=== PATIENT | female | born 2000 | race Caucasian/White ===

== ENCOUNTER 2021-04-07 12:22 | Emergency (ER) | payer SELFPAY ==
--- NOTE | 2021-04-07 12:35 | EDM.PDOC ---
ED HPI GENERAL MEDICAL PROBLEM - General Chief Complaint: Genitourinary Problem Stated Complaint: POSSIBLE UTI Time Seen by Provider: 04/07/21 12:34 Source of Information: Reports: Patient History Limitations: Reports: No Limitations - History of Present Illness INITIAL COMMENTS - FREE TEXT/NARRATIVE: HISTORY AND PHYSICAL: History of present illness: The patient is a 20-year-old female who presents to the emergency room with complaints of bright red urine that started yesterday. The patient states that yesterday she noticed a pink hue to her urine and today noticed bright red hue to her urine. She denies dysuria and frequency. She states she otherwise feels perfectly healthy. Patient denies any fever, chills, headache, change in vision, syncope or near syncope. Denies any chest pain, back pain, shortness of breath or cough. Denies any abdominal pain, nausea, vomiting, diarrhea, or constipation. Has not noted any blood in urine or stool. Patient has been eating and drinking appropriately. Review of systems: As per history of present illness and below otherwise all systems reviewed and negative. Past medical history: As per history of present illness and as reviewed below otherwise noncontributory. Surgical history: As per history of present illness and as reviewed below otherwise noncontributory. Social history: See social history for further information Family history: As per history of present illness and as reviewed below otherwise noncontributory. Physical exam: General: Well developed and well nourished. Alert and orientated x 3. Nontoxic in appearance and in no acute distress. Vital signs are stable and have been reviewed by me. Nursing notes were reviewed. HEENT: Atraumatic, normocephalic, pupils equal and reactive bilaterally, negative for conjunctival pallor or scleral icterus, mucous membranes moist, TMs normal bilaterally, throat clear, neck supple, nontender, trachea midline. No drooling or trismus noted. No meningeal signs. No hot potato voice noted. Lungs: Clear to auscultation bilaterally. No wheezes, rales, or rhonchi. Chest nontender. Normal work of breathing, no accessory muscles used. Heart: S1S2, regular rate and rhythm without overt murmur, gallops, or rubs. No JVD. No peripheral edema Abdomen: Soft, nondistended, nontender. Normoactive bowel sounds. Negative for masses or costovertebral tenderness. Skin: Intact, warm, dry. No lesions or rashes noted. Hematologic: No petechiae or purpra. Mucosa appropriate color and normal nail bed color and refill. Extremities: Atraumatic, moves all extremities per self without difficulty or deficits, negative for cords or calf pain. Neurovascular unremarkable. Neuro: Awake, alert, oriented. Cranial nerves II through XII unremarkable. Cerebellum unremarkable. Motor and sensory unremarkable throughout. Exam nonfocal. Psychiatric: Mood and affect are appropriate. Normal thought process. Answering questions appropriately. Notes: *This patient was seen and evaluated during the 2019 SARS-CoV-2 novel coronavirus pandemic period. Community viral transmission is ongoing at time of this encounter and the emergency department is operating under pandemic response procedures. Stated above the patient is a 20-year-old female who presents with complaints of bright red urine for 24 hours and no dysuria and frequency. I have ordered a urinalysis. The patient is agreeable with this plan. The patient's urinalysis shows gross hematuria no bacteria. As the patient is having painless hematuria I have ordered a CT of the abdomen and pelvis with and without contrast for possible renal carcinoma or renal calculi. Ordered blood work on the patient. I have ordered fluids for the patient. The patient is agreeable with this plan. Abdomen pelvis CT Impression: Mild left hydronephrosis. No renal/ureteral calculi are identified. A recently passed stone cannot be completely excluded other etiologies cannot be excluded. If the patient`s pain continues c onsideration should be given to urology consult. I informed the patient of the CT results and of the need for her to see her primary care and a urologist for further work-up. The patient is agreeable with this discharge plan. I have talked with the patient about today's findings, in addition to providing specific details for plan of care. Reassessment at the time of disposition demonstrates that the patient is in no acute distress. The patient is stable for discharge, counseling was provided and we discussed in great detail signs and symptoms that would prompt them to return to the Emergency Department. Medication, follow up and supportive care measures were reviewed and discussed. Voices understanding and is agreeable to plan of care. Denies any further questions or concerns at this time. Diagnostics: urinalysis, BC, CMP, CT abdomen pelvis with and without contrast Therapeutics: IV fluids Impression: Hematuria Plan: 1. You were evaluated today on an emergent basis. Your plaints of painless blood in your urine was evaluated with a urinalysis, blood work, and a CT of your abdomen pelvis. No abnormalities were found. I would advise you to follow-up with a urologist for further work-up. 2. You can alternate Tylenol and ibuprofen as needed for pain and fever management. 3. We encourage you to follow up with your primary care provider and/or recommended specialist in the next few days for re-evaluation and further care/management. 4. If your symptoms should worsen, new symptoms develop or any of the signs and symptoms we discussed should arise please return to the emergency room or call 911 (if needed). Definitive disposition and diagnosis as appropriate pending reevaluation and review of above. - Related Data Allergies Allergy/AdvReac Type Severity Reaction Status Date / Time amoxicillin Allergy Cannot Verified 04/07/21 12:35 Remember Home Meds: Home Meds . [No Known Home Meds] 04/07/21 [History] ED ROS GENERAL - Review of Systems Review Of Systems: Comprehensive ROS is negative, except as noted in HPI. ED EXAM, RENAL/ - Physical Exam Exam: See Below (See dictation) Course - Vital Signs Last Recorded V/S: Last Vital Signs Temp 97.9 F 04/07/21 12:35 Pulse 56 L 04/07/21 15:30 Resp 17 04/07/21 15:30 BP 99/56 L 04/07/21 15:30 Pulse Ox 98 04/07/21 15:30 - Orders/Labs/Meds Labs: Laboratory Tests 04/07/21 04/07/21 04/07/21 Range/Units 12:33 13:25 13:25 WBC 9.81 (4.0-11.0) K/uL RBC 4.89 (4.30-5.90) M/uL Hgb 14.1 (12.0-16.0) g/dL Hct 40.7 (36.0-46.0) % MCV 83.2 (80.0-98.0) fL MCH 28.8 (27.0-32.0) pg MCHC 34.6 (31.0-37.0) g/dL RDW Std Deviation 42.3 (28.0-62.0) fl RDW Coeff of [place] 14 (11.0-15.0) % Plt Count 454 H (150-400) K/uL MPV 10.70 (7.40-12.00) fL Neut % (Auto) 50.7 (48.0-80.0) % Lymph % (Auto) 30.5 (16.0-40.0) % [place] % (Auto) 5.6 (0.0-15.0) % Eos % (Auto) 12.9 H (0.0-7.0) % Baso % (Auto) 0.3 (0.0-1.5) % Neut # (Auto) 5.0 (1.4-5.7) K/uL Lymph # (Auto) 3.0 H (0.6-2.4) K/uL [place] # (Auto) 0.6 (0.0-0.8) K/uL Eos # (Auto) 1.3 H (0.0-0.7) K/uL Baso # (Auto) 0.0 (0.0-0.1) K/uL Nucleated RBC % 0.0 /100WBC Nucleated RBCs # 0 K/uL Sodium 142 (136-145) mmol/L Potassium 4.4 (3.5-5.1) mmol/L Chloride 105 (98-107) mmol/L Carbon Dioxide 25.1 (21.0-32.0) mmol/L BUN 8 (7.0-18.0) mg/dL Creatinine 0.8 (0.6-1.0) mg/dL Est Cr Clr Drug Dosing 80.57 mL/min Estimated GFR (MDRD) > 60.0 ml/min Glucose 97 (74-106) mg/dL Calcium 9.7 (8.5-10.1) mg/dL Total Bilirubin 0.8 (0.2-1.0) mg/dL AST 20 (15-37) IU/L ALT 24 (14-63) IU/L Alkaline Phosphatase 91 (46-116) U/L Total Protein 8.0 (6.4-8.2) g/dL Albumin 4.4 (3.4-5.0) g/dL Globulin 3.6 (2.6-4.0) g/dL Albumin/Globulin Ratio 1.2 (0.9-1.6) Urine Color RED Urine Appearance BLOODY Urine pH 6.5 (5.0-8.0) Ur Specific [place] 1.015 (1.001-1.035) Urine Protein TRACE H (NEGATIVE) mg/dL Urine Glucose (UA) NEGATIVE (NEGATIVE) mg/dL Urine Ketones NEGATIVE (NEGATIVE) mg/dL Urine Occult Blood LARGE H (NEGATIVE) Urine Nitrite NEGATIVE (NEGATIVE) Urine Bilirubin NEGATIVE (NEGATIVE) Urine Urobilinogen 0.2 (<2.0) EU/dL Ur Leukocyte Esterase NEGATIVE (NEGATIVE) Urine RBC TOO NUMEROUS TO CT H (0-2/HPF) Urine WBC 0-1 (0-5/HPF) Ur Epithelial Cells OCCASIONAL (NONE-FEW) Urine Bacteria RARE (NEGATIVE) Urinalysis Comment Meds: Medications Discontinued Medications Generic Name Dose Route Start Last Admin Trade Name Freq PRN Reason Stop Dose Admin Sodium Chloride 1,000 mls @ 999 mls/hr 04/07/21 13:13 04/07/21 13:21 Normal Saline IV 04/07/21 14:13 999 mls/hr .BOLUS ONE Administration Iopamidol 100 ml 04/07/21 19:08 04/07/21 19:11 Iopamidol 755 Mg/Ml 500 Ml Multipack Bottle IVPUSH 04/07/21 19:09 100 ml ONETIME STA Administration Sodium Chloride 10 ml 04/07/21 13:13 04/07/21 13:19 Sodium Chloride 0.9% 10 Ml Syringe FLUSH 10 ml ASDIRECTED PRN Administration Keep Vein Open Sodium Chloride 2.5 ml 04/07/21 13:13 04/07/21 13:19 Sodium Chloride 0.9% 2.5 Ml Syringe FLUSH 2.5 ml ASDIRECTED PRN Administration Keep Vein Open Departure - Departure Time of Disposition: 15:18 Disposition: Home, Self-Care 01 Condition: Good Clinical Impression: Hematuria Qualifiers: Hematuria type: gross Qualified Code(s): R31.0 - Gross hematuria - Discharge Information *PRESCRIPTION DRUG MONITORING PROGRAM REVIEWED*: Not Applicable *COPY OF PRESCRIPTION DRUG MONITORING REPORT IN PATIENT TAE: Not Applicable Instructions: Hematuria, Adult Referrals: PCP,None [Primary Care Provider] - Forms: ED Department Discharge Additional Instructions: The following information is given to patients seen in the emergency department who are being discharged to home. This information is to outline your options for follow-up care. We provide all patients seen in our emergency department with a follow-up referral. The need for follow-up, as well as the timing and circumstances, are variable depending upon the specifics of your emergency department visit. If you don't have a primary care physician on staff, we will provide you with a referral. We always advise you to contact your personal physician following an emergency department visit to inform them of the circumstance of the visit and for follow-up with them and/or the need for any referrals to a consulting specialist. The emergency department will also refer you to a specialist when appropriate. This referral assures that you have the opportunity for follow-up care with a specialist. All of these measure are taken in an effort to provide you with optimal care, which includes your follow-up. Under all circumstances we always encourage you to contact your private physician who remains a resource for coordinating your care. When calling for follow-up care, please make the office aware that this follow-up is from your recent emergency room visit. If for any reason you are refused follow-up, please contact the [facility] Emergency Department at and asked to speak to the emergency department charge nurse. [facility] - [facility] [address] [place] [address] [place] [address] Plan: 1. You were evaluated today on an emergent basis. Your plaints of painless blood in your urine was evaluated with a urinalysis, blood work, and a CT of your abdomen pelvis. No abnormalities were found. I would advise you to follow-up with a urologist for further work-up. 2. You can alternate Tylenol and ibuprofen as needed for pain and fever management. 3. We encourage you to follow up with your primary care provider and/or recommended specialist in the next few days for re-evaluation and further care/management. 4. If your symptoms should worsen, new symptoms develop or any of the signs and symptoms we discussed should arise please return to the emergency room or call [phone] (if needed).
[2021-04-07] MEDS ORDERED: Sodium Chloride 0.9% 2.5 ML Syringe FLUSH PRN (13:13)
[2021-04-07] MEDS ORDERED: Sodium Chloride 0.9% 10 ML Syringe FLUSH PRN (13:13)
[2021-04-07] MEDS ORDERED: Sodium Chloride 0.9% 1,000 ML IV ONE (13:13)
[2021-04-07 13:53] LABS: BLOOD UREA NITROGEN,BUN 8 mg/dL (7.0-18.0); CARBON DIOXIDE,CO2 25.1 mmol/L (21.0-32.0); CHLORIDE,CL 105 mmol/L (98-107); GLUCOSE RANDOM 97 mg/dL (74-106); POTASSIUM,K 4.4 mmol/L (3.5-5.1); SODIUM,NA 142 mmol/L (136-145)
--- NOTE | 2021-04-07 15:08 | CT ---
Indication: Painless hematuria. Technique: Multiple contiguous axial images were obtained from the lung bases to the symphysis pubis before and after the intravenous administration of 100 milliliters Isovue 370. Please note that all CT scans at this facility use dose modulation, iterative reconstruction, and/or weight-based dosing when appropriate to reduce radiation dose to as low as reasonably achievable. Comparison: None Findings: The lung bases are clear. No infiltrate, pleural effusion, pneumothorax is identified. The liver, spleen, pancreas, gallbladder, and adrenals are normal. No intrahepatic biliary ductal dilatation is identified. In the pelvis, an IUD is present in the uterus. Both ovaries are grossly normal. The small and large bowel are normal in caliber. The appendix is normal in caliber. No inflammatory changes are identified in the right lower quadrant. The aorta is normal in size. No free air or free fluid is identified within the abdomen or pelvis. Both kidneys are symmetric in size. No renal calculi are identified. Minimal left hydronephrosis is identified. No hydroureter is identified. No renal/ureteral calculi identified. No calculi are identified within the bladder. Impression: Mild left hydronephrosis. No renal/ureteral calculi are identified. A recently passed stone cannot be completely excluded other etiologies cannot be excluded. If the patient`s pain continues consideration should be given to urology consult. Please note that all CT scans at this facility use dose modulation, iterative reconstruction, and/or weight-based dosing when appropriate to reduce radiation dose to as low as reasonably achievable. Dictated by Apple Perkins MD @ 04/07/2021 3:08:24 PM (Electronically Signed)
[2021-04-07] MEDS ORDERED: Iopamidol 755 MG/ML 500 ML Multipack Bottle IVPUSH STA (19:08)
== END 2021-04-07 15:31 | disposition home or self-care (01) ==
LOC: MW.ED 12:22
DX: R31.0 Gross hematuria (principal); Z88.0 Allergy status to penicillin
CPT/HCPCS: 36415; 74178; 80053; 81001; 85025; 99284; J7030; Q9967

== ENCOUNTER 2021-04-10 09:30 | Inpatient (IN) | payer SELFPAY ==
[2021-04-10] MEDS ORDERED: Sodium Chloride 0.9% 1,000 ML IV ONE ×3 (10:31→20:13)
[2021-04-10] MEDS ORDERED: Ketorolac 30 MG/ML SDV IVPUSH ONE (10:39)
--- NOTE | 2021-04-10 10:39 | EDM.PDOC ---
ED HPI GENERAL MEDICAL PROBLEM - General Chief Complaint: Genitourinary Problem Stated Complaint: BLOOD CLOTS IN URINE Time Seen by Provider: 04/10/21 10:04 Source of Information: Reports: Patient History Limitations: Reports: No Limitations - History of Present Illness INITIAL COMMENTS - FREE TEXT/NARRATIVE: HISTORY AND PHYSICAL: History of present illness: Patient is a 20-year-old female resents emergency room today with concern of gross hematuria x5 days. Patient states that what she was seen in the emergency room on Friday and states that she is not quite sure the outcome of that visit. Patient states she did have lab work and a scan at that time. Patient states that since then, she has continued to urinate blood clots. Patient denies any pain associated with this but states that she does have some discomfort when the blood clots to come out of her urethra. Patient states that she is not bleeding vaginally and she is able to differentiate this easily. Frank lopes does have pictures on her phone with her and a video of her urinating dark blood clots. Patient states she does have an IUD so does not believe to be . Patient states that she has had a cough x2 weeks and states that she did develop a fever this morning of 103. Patient states she did take 1 dose of Tylenol at about 5/6 AM for her fever. Denies any other symptoms or concerns. Patient denies chest pain, shortness of breath. Denies headache, neck stiff ness, change in vision, syncope, or near syncope. Denies nausea, vomiting, abdominal pain, diarrhea, constipation, or dysuria. Has not noted any blood in stool. Patient has been eating and drinking appropriately. Review of systems: As per history of present illness and below otherwise all systems reviewed and negative. Past medical history: As per history of present illness and as reviewed below otherwise noncontributory. Surgical history: As per history of present illness and as reviewed below otherwise noncontribu tory. Social history: See social history for further information Family history: As per history of present illness and as reviewed below otherwise noncontributory. Physical exam: General: Patient is alert, oriented, and in no acute distress. Patient sitting comfortably on exam table. Patient is febrile at 103 with mild tachycardia of 115. Otherwise, vitally stable and reviewed by me. HEENT: Atraumatic, normocephalic, pupils equal and reactive bilaterally, negative for conjunctival pallor or scleral icterus, mucous membranes moist, TMs normal bilaterally, throat clear, neck supple, nontender, trachea midline. No drooling or trismus noted. No meningeal signs. No hot potato voice noted. Lungs: Dry cough on exam. Otherwise, clear to auscultation, breath sounds equal bilaterally, chest nontender. Heart: S1S2, regular rate and rhythm without overt murmur Abdomen: Soft, nondistended, nontender. Negative for masses or hepatosplenomegaly. Negative for costovertebral tenderness. Pelvis: Stable nontender. Genitourinary: Cryptoanalysis Teacher at bedside Shwetha Duncan RN. External genitalia grossly unremarkable. There is a small amount of white vaginal discharge in the vaginal vault. Negative cervical motion tenderness. Uterus is nontender. No adnexal mass or tenderness. Rectal: Deferred. Skin: Intact, warm, dry. No lesions or rashes noted. Extremities: Atraumatic, negative for cords or calf pain. Neurovascular unremarkable. Neuro: Awake, alert, oriented. Cranial nerves II through XII unremarkable. Cerebellum unremarkable. Motor and sensory unremarkable throughout. Exam nonfocal. Notes: Dr. Kevin verbally involved in patient care. Patient is a 20-year-old female who resents emergency room today secondary to gross hematuria x4 to 5 days. Upon arrival to the ED, patient is febrile 103 with mild tachycardia 115's on exam and does have a dry cough on exam. Patient does note she has had a cough x2 weeks. Patient states she was seen in the emergency room on Friday. On chart review from patient's visit on 04/07/2021, patient was seen in the emergency room for gross hematuria at that time. Patient had received basic lab work which was unremarkable and urinalysis showing gross hematuria without bacteria or concern for infection. Patient also received an abdominal pelvic CT scan both with and without contrast that showed mild left hydronephrosis without renal or ureteral calculi identified. Recently passed stone could not be excluded or other causes cannot be excluded. Recommend urology consult. Patient was discharged with instructions to follow-up with urologist and primary care provider. Upon arrival to the ED today, patient is tachycardic 115-1 20s on exam, febrile at 103, otherwise vitally stable on exam and well-appearing. Patient does not have any CVA or abdominal tenderness. exam is unremarkable and shows no vaginal bleeding or cervical motion or uterine tenderness. Exam is otherwise unremarkable. Will repeat labwork today, assessing H&H status, possible change in renal function, and repeat UA. Given patient has had cough x2 weeks with now having a fever and mild tachycardia, will also obtain a chest x-ray, COVID-19/influenza swab, assessing for possible source of fever. See Dr. Kevin's dictation for specific EKG interpretation. However, sinus tachycardia with a rate of 110 without STEMI. CBC remarkable for a elevation in white blood cell count at 19.25 which has increased from lab work on 04/07/21 shows a normal white blood cell count. Hemoglobin hematocrit stable. Patient does have a neutrophilic elevation percent at 89.1, otherwise mild derangements of CBC unremarkable. CMP shows a mildly elevated glucose at 127, otherwise mild derangements of CMP unremarkable. Lactic acid noted to be elevated at 2.1. Urinalysis shows 1-4 white blood cells, 0-1 red blood cells, negative leukocyte esterase, negative nitrite, 2+ bacteria. hCG negative. COVID-19 negative. Troponin negative. Repeat lactate within normal limits at 1.9. Strep swab throat negative. Influenza negative. RSV negative. Chest x-ray unremarkable. Pending peripheral blood smear. Pending blood cultures x2. D-dimer elevated at 0.66 so will obtain angiography chest and bilateral lower extremity venous Doppler. Angiography of chest shows minimal nonspecific central bronchial thickening and trace reactive appearance of the hilar lymph nodes. Otherwise, no evidence of dense consolidation or pulmonary embolism. Lower extremity Doppler ultrasound is negative bilateral lower extremity venous Doppler. Upon reevaluation of patient, she remains tachycardic approximately 110s on exam. She does have improvement of her fever to 100.3. I did call and speak to the urologist on-call for [facility], Dr. Torrez, and thoroughly discussed patient's case. She would like patient to receive an ultrasound of the bilateral kidneys and bladder and to assess for jet streaming of the bladder on each side. These ultrasounds were ordered at this time. According to Dr. Fall, if patient has bilateral ureteral jets, she does not require transfer for urology and can be admitted to our facility. Retroperitoneal/bladder ultrasound shows no hydronephrosis. No perinephritic fluid or renal abscess. Bilateral ureteral jets observed. I did call and speak to the hospitalist on-call, Dr. Queen, and thoroughly discussed patient's case. Will admit to inpatient to Dr. Queen. Voices understanding and is agreeable to plan of care. Denies any further questions or concerns at this time. Patient was transferred to the hospital floor to Dr. Queen's care in stable condition. Diagnostics: EKG, CBC, CMP, UA, urine hCG, COVID-19/influenza, chest x-ray, peripheral blood smear, lactate, blood cultures x2, strep swab throat, RSV, D-dimer, angiography of chest, bilateral lower extremity venous ultrasound, retroperitoneal and bladder ultrasound Therapeutics: Normal saline bolus 20cc/kg then maintenance, Toradol, Tylenol, Cefepime, Vancomycin Impression: SEPSIS with unknown source Hematuria Plan: Admit to inpatient to Dr. Queen Definitive disposition and diagnosis as appropriate pending reevaluation and review of above. Treatments ELECTRONICS INSTRUCTOR: Reports: Acetaminophen head Pain Score (Numeric/FACES): 5 - Related Data Allergies Allergy/AdvReac Type Severity Reaction Status Date / Time amoxicillin Allergy Cannot Verified 04/10/21 10:10 Remember Home Meds: Home Meds . [No Known Home Meds] 04/07/21 [History] Past Medical History - Past Health History Medical/Surgical History: Denies Medical/Surgical History HEENT History: Reports: None Cardiovascular History: Reports: None Respiratory History: Reports: None Gastrointestinal History: Reports: None Genitourinary History: Reports: None VISITOR USE ASSISTANT History: Reports: None Musculoskeletal History: Reports: None Neurological History: Reports: None Psychiatric History: Reports: None Endocrine/Metabolic History: Reports: None Hematologic History: Reports: None Other Hematologic History: carries sickle cell trait Immunologic History: Reports: None Oncologic (Cancer) History: Reports: None Dermatologic History: Reports: None - Infectious Disease History Infectious Disease History: Reports: None - Past Surgical History Head Surgeries/Procedures: Reports: None HEENT Surgical History: Reports: None Cardiovascular Surgical History: Reports: None Respiratory Surgical History: Reports: None GI Surgical History: Reports: None Female Surgical History: Reports: None Endocrine Surgical History: Reports: None Neurological Surgical History: Reports: None Musculoskeletal Surgical History: Reports: None Oncologic Surgical History: Reports: None Dermatological Surgical History: Reports: None Social & Family History - Family History Family Medical History: No Pertinent Family History - Tobacco Use Tobacco Use Status *Q: Never Tobacco User Second Hand Smoke Exposure: No - Caffeine Use Caffeine Use: Reports: None - Recreational Drug Use Recreational Drug Use: No ED ROS GENERAL - Review of Systems Review Of Systems: Comprehensive ROS is negative, except as noted in HPI. ED EXAM, GENERAL - Physical Exam Exam: See Below (see dictation) Course - Vital Signs Last Recorded V/S: Last Vital Signs Temp 100 F 04/10/21 17:04 Pulse 104 H 04/10/21 18:41 Resp 20 04/10/21 18:41 BP 102/52 L 04/10/21 18:41 Pulse Ox 98 04/10/21 18:41 - Orders/Labs/Meds Orders: Active Orders 24 hr Category Date Time Status CULTURE BLOOD [BC] Stat Lab 04/10/21 10:55 Received CULTURE BLOOD [BC] Stat Lab 04/10/21 11:26 Received Blood Culture x2 Reflex Set [OM.PC] Stat Oth 04/10/21 11:11 Ordered Isolation [COMM] Routine Oth 04/10/21 10:31 Active Isolation [COMM] Routine Oth 04/10/21 11:55 Active Labs: Laboratory Tests 04/10/21 04/10/21 04/10/21 Range/Units 10:10 10:10 10:18 WBC (4.0-11.0) K/uL RBC (4.30-5.90) M/uL Hgb (12.0-16.0) g/dL Hct (36.0-46.0) % MCV (80.0-98.0) fL MCH (27.0-32.0) pg MCHC (31.0-37.0) g/dL RDW Std Deviation (28.0-62.0) fl RDW Coeff of [place] (11.0-15.0) % Plt Count (150-400) K/uL MPV (7.40-12.00) fL Neut % (Auto) (48.0-80.0) % Lymph % (Auto) (16.0-40.0) % Lynn % (Auto) (0.0-15.0) % Eos % (Auto) (0.0-7.0) % Baso % (Auto) (0.0-1.5) % Neut # (Auto) (1.4-5.7) K/uL Lymph # (Auto) (0.6-2.4) K/uL Lynn # (Auto) (0.0-0.8) K/uL Eos # (Auto) (0.0-0.7) K/uL Baso # (Auto) (0.0-0.1) K/uL Nucleated RBC % /100WBC Nucleated RBCs # K/uL Smear Path Review D-Dimer, Quantitative (0.0-0.50) mg/L FEU Sodium (136-145) mmol/L Potassium (3.5-5.1) mmol/L Chloride (98-107) mmol/L Carbon Dioxide (21.0-32.0) mmol/L BUN (7.0-18.0) mg/dL Creatinine (0.6-1.0) mg/dL Est Cr Clr Drug Dosing mL/min Estimated GFR (MDRD) ml/min Glucose (74-106) mg/dL Lactic Acid (0.4-2.0) mmol/L Calcium (8.5-10.1) mg/dL Total Bilirubin (0.2-1.0) mg/dL AST (15-37) IU/L ALT (14-63) IU/L Alkaline Phosphatase (46-116) U/L Troponin I (0.000-0.056) ng/mL Total Protein (6.4-8.2) g/dL Albumin (3.4-5.0) g/dL Globulin (2.6-4.0) g/dL Albumin/Globulin Ratio (0.9-1.6) Lipase (73-393) U/L Urine Color YELLOW Urine Appearance CLEAR Urine pH 6.0 (5.0-8.0) Ur Specific [place] 1.020 (1.001-1.035) Urine Protein NEGATIVE (NEGATIVE) mg/dL Urine Glucose (UA) NEGATIVE (NEGATIVE) mg/dL Urine Ketones NEGATIVE (NEGATIVE) mg/dL Urine Occult Blood MODERATE H (NEGATIVE) Urine Nitrite NEGATIVE (NEGATIVE) Urine Bilirubin NEGATIVE (NEGATIVE) Urine Urobilinogen 0.2 (<2.0) EU/dL Ur Leukocyte Esterase NEGATIVE (NEGATIVE) Urine RBC 0-1 (0-2/HPF) Urine WBC 1-4 (0-5/HPF) Ur Epithelial Cells OCCASIONAL (NONE-FEW) Urine Bacteria 2+ H (NEGATIVE) Urine Mucus LIGHT (NONE-MOD) Urine HCG, Qual NEGATIVE (NEGATIVE) SARS-CoV-2 RNA ([place]) NEGATIVE (NEGATIVE) Group A Strep (PCR) (NOT DETECT) 04/10/21 04/10/21 04/10/21 Range/Units 10:55 10:55 10:55 WBC 19.25 H (4.0-11.0) K/uL RBC 4.29 L (4.30-5.90) M/uL Hgb 12.3 (12.0-16.0) g/dL Hct 35.8 L (36.0-46.0) % MCV 83.4 (80.0-98.0) fL MCH 28.7 (27.0-32.0) pg MCHC 34.4 (31.0-37.0) g/dL RDW Std Deviation 43.4 (28.0-62.0) fl RDW Coeff of [place] 14 (11.0-15.0) % Plt Count 274 (150-400) K/uL MPV 10.60 (7.40-12.00) fL Neut % (Auto) 89.1 H (48.0-80.0) % Lymph % (Auto) 4.3 L (16.0-40.0) % Lynn % (Auto) 6.5 (0.0-15.0) % Eos % (Auto) 0.0 (0.0-7.0) % Baso % (Auto) 0.1 (0.0-1.5) % Neut # (Auto) 17.2 H (1.4-5.7) K/uL Lymph # (Auto) 0.8 (0.6-2.4) K/uL Lynn # (Auto) 1.3 H (0.0-0.8) K/uL Eos # (Auto) 0.0 (0.0-0.7) K/uL Baso # (Auto) 0.0 (0.0-0.1) K/uL Nucleated RBC % 0.0 /100WBC Nucleated RBCs # 0 K/uL Smear Path Review D-Dimer, Quantitative (0.0-0.50) mg/L FEU Sodium 137 (136-145) mmol/L Potassium 3.7 (3.5-5.1) mmol/L Chloride 100 (98-107) mmol/L Carbon Dioxide 21.9 (21.0-32.0) mmol/L BUN 9 (7.0-18.0) mg/dL Creatinine 1.0 (0.6-1.0) mg/dL Est Cr Clr Drug Dosing 64.46 mL/min Estimated GFR (MDRD) > 60.0 ml/min Glucose 127 H (74-106) mg/dL Lactic Acid 2.1 H* (0.4-2.0) mmol/L Calcium 9.8 (8.5-10.1) mg/dL Total Bilirubin 0.8 (0.2-1.0) mg/dL AST 13 L (15-37) IU/L ALT 21 (14-63) IU/L Alkaline Phosphatase 79 (46-116) U/L Troponin I (0.000-0.056) ng/mL Total Protein 7.4 (6.4-8.2) g/dL Albumin 4.0 (3.4-5.0) g/dL Globulin 3.4 (2.6-4.0) g/dL Albumin/Globulin Ratio 1.2 (0.9-1.6) Lipase 63 L (73-393) U/L Urine Color Urine Appearance Urine pH (5.0-8.0) Ur Specific [place] (1.001-1.035) Urine Protein (NEGATIVE) mg/dL Urine Glucose (UA) (NEGATIVE) mg/dL Urine Ketones (NEGATIVE) mg/dL Urine Occult Blood (NEGATIVE) Urine Nitrite (NEGATIVE) Urine Bilirubin (NEGATIVE) Urine Urobilinogen (<2.0) EU/dL Ur Leukocyte Esterase (NEGATIVE) Urine RBC (0-2/HPF) Urine WBC (0-5/HPF) Ur Epithelial Cells (NONE-FEW) Urine Bacteria (NEGATIVE) Urine Mucus (NONE-MOD) Urine HCG, Qual (NEGATIVE) SARS-CoV-2 RNA ([place]) (NEGATIVE) Group A Strep (PCR) (NOT DETECT) 04/10/21 04/10/21 04/10/21 Range/Units 10:55 10:55 12:14 WBC (4.0-11.0) K/uL RBC (4.30-5.90) M/uL Hgb (12.0-16.0) g/dL Hct (36.0-46.0) % MCV (80.0-98.0) fL MCH (27.0-32.0) pg MCHC (31.0-37.0) g/dL RDW Std Deviation (28.0-62.0) fl RDW Coeff of [place] (11.0-15.0) % Plt Count (150-400) K/uL MPV (7.40-12.00) fL Neut % (Auto) (48.0-80.0) % Lymph % (Auto) (16.0-40.0) % Lynn % (Auto) (0.0-15.0) % Eos % (Auto) (0.0-7.0) % Baso % (Auto) (0.0-1.5) % Neut # (Auto) (1.4-5.7) K/uL Lymph # (Auto) (0.6-2.4) K/uL Lynn # (Auto) (0.0-0.8) K/uL Eos # (Auto) (0.0-0.7) K/uL Baso # (Auto) (0.0-0.1) K/uL Nucleated RBC % /100WBC Nucleated RBCs # K/uL Smear Path Review SENT TO PATHOLOGY D-Dimer, Quantitative 0.66 H (0.0-0.50) mg/L FEU Sodium (136-145) mmol/L Potassium (3.5-5.1) mmol/L Chloride (98-107) mmol/L Carbon Dioxide (21.0-32.0) mmol/L BUN (7.0-18.0) mg/dL Creatinine (0.6-1.0) mg/dL Est Cr Clr Drug Dosing mL/min Estimated GFR (MDRD) ml/min Glucose (74-106) mg/dL Lactic Acid (0.4-2.0) mmol/L Calcium (8.5-10.1) mg/dL Total Bilirubin (0.2-1.0) mg/dL AST (15-37) IU/L ALT (14-63) IU/L Alkaline Phosphatase (46-116) U/L Troponin I (0.000-0.056) ng/mL Total Protein (6.4-8.2) g/dL Albumin (3.4-5.0) g/dL Globulin (2.6-4.0) g/dL Albumin/Globulin Ratio (0.9-1.6) Lipase (73-393) U/L Urine Color Urine Appearance Urine pH (5.0-8.0) Ur Specific [place] (1.001-1.035) Urine Protein (NEGATIVE) mg/dL Urine Glucose (UA) (NEGATIVE) mg/dL Urine Ketones (NEGATIVE) mg/dL Urine Occult Blood (NEGATIVE) Urine Nitrite (NEGATIVE) Urine Bilirubin (NEGATIVE) Urine Urobilinogen (<2.0) EU/dL Ur Leukocyte Esterase (NEGATIVE) Urine RBC (0-2/HPF) Urine WBC (0-5/HPF) Ur Epithelial Cells (NONE-FEW) Urine Bacteria (NEGATIVE) Urine Mucus (NONE-MOD) Urine HCG, Qual (NEGATIVE) SARS-CoV-2 RNA ([place]) (NEGATIVE) Group A Strep (PCR) NOT DETECTED (NOT DETECT) 04/10/21 04/10/21 Range/Units 16:07 16:07 WBC (4.0-11.0) K/uL RBC (4.30-5.90) M/uL Hgb (12.0-16.0) g/dL Hct (36.0-46.0) % MCV (80.0-98.0) fL MCH (27.0-32.0) pg MCHC (31.0-37.0) g/dL RDW Std Deviation (28.0-62.0) fl RDW Coeff of [place] (11.0-15.0) % Plt Count (150-400) K/uL MPV (7.40-12.00) fL Neut % (Auto) (48.0-80.0) % Lymph % (Auto) (16.0-40.0) % Lynn % (Auto) (0.0-15.0) % Eos % (Auto) (0.0-7.0) % Baso % (Auto) (0.0-1.5) % Neut # (Auto) (1.4-5.7) K/uL Lymph # (Auto) (0.6-2.4) K/uL Lynn # (Auto) (0.0-0.8) K/uL Eos # (Auto) (0.0-0.7) K/uL Baso # (Auto) (0.0-0.1) K/uL Nucleated RBC % /100WBC Nucleated RBCs # K/uL Smear Path Review D-Dimer, Quantitative (0.0-0.50) mg/L FEU Sodium (136-145) mmol/L Potassium (3.5-5.1) mmol/L Chloride (98-107) mmol/L Carbon Dioxide (21.0-32.0) mmol/L BUN (7.0-18.0) mg/dL Creatinine (0.6-1.0) mg/dL Est Cr Clr Drug Dosing mL/min Estimated GFR (MDRD) ml/min Glucose (74-106) mg/dL Lactic Acid 1.9 (0.4-2.0) mmol/L Calcium (8.5-10.1) mg/dL Total Bilirubin (0.2-1.0) mg/dL AST (15-37) IU/L ALT (14-63) IU/L Alkaline Phosphatase (46-116) U/L Troponin I < 0.050 (0.000-0.056) ng/mL Total Protein (6.4-8.2) g/dL Albumin (3.4-5.0) g/dL Globulin (2.6-4.0) g/dL Albumin/Globulin Ratio (0.9-1.6) Lipase (73-393) U/L Urine Color Urine Appearance Urine pH (5.0-8.0) Ur Specific [place] (1.001-1.035) Urine Protein (NEGATIVE) mg/dL Urine Glucose (UA) (NEGATIVE) mg/dL Urine Ketones (NEGATIVE) mg/dL Urine Occult Blood (NEGATIVE) Urine Nitrite (NEGATIVE) Urine Bilirubin (NEGATIVE) Urine Urobilinogen (<2.0) EU/dL Ur Leukocyte Esterase (NEGATIVE) Urine RBC (0-2/HPF) Urine WBC (0-5/HPF) Ur Epithelial Cells (NONE-FEW) Urine Bacteria (NEGATIVE) Urine Mucus (NONE-MOD) Urine HCG, Qual (NEGATIVE) SARS-CoV-2 RNA ([place]) (NEGATIVE) Group A Strep (PCR) (NOT DETECT) Meds: Medications Discontinued Medications Generic Name Dose Route Start Last Admin Trade Name Freq PRN Reason Stop Dose Admin Acetaminophen 1,000 mg 04/10/21 15:43 04/10/21 16:14 Acetaminophen 500 Mg Tab PO 04/10/21 15:44 1,000 mg ONETIME ONE Administration Sodium Chloride 1,000 mls @ 999 mls/hr 04/10/21 10:31 04/10/21 10:43 Normal Saline IV 04/10/21 11:31 999 mls/hr BOLUS ONE Administration Cefepime HCl 2 gm/ Premix 50 mls @ 100 mls/hr 04/10/21 11:54 04/10/21 15:08 IV 04/10/21 12:23 100 mls/hr ONETIME ONE Administration Vancomycin HCl 1 gm/ Sodium 250 mls @ 166 mls/hr 04/10/21 11:56 04/10/21 12:21 Chloride IV 04/10/21 13:26 166 mls/hr ONETIME ONE Administration Sodium Chloride 1,000 mls @ 400 mls/hr 04/10/21 11:56 04/10/21 12:22 Normal Saline IV 04/10/21 14:25 400 mls/hr STAT ONE Administration Iopamidol 50 ml 04/10/21 15:05 04/10/21 15:06 Iopamidol 755 Mg/Ml 500 Ml Multipack Bottle IVPUSH 04/10/21 15:06 50 ml ONETIME STA Administration Ketorolac Tromethamine 30 mg 04/10/21 10:39 04/10/21 10:43 Ketorolac 30 Mg/Ml Sdv IVPUSH 04/10/21 10:40 30 mg ONETIME ONE Administration Lorazepam 0.5 mg 04/10/21 16:07 04/10/21 16:15 Lorazepam 2 Mg/Ml Sdv IVPUSH 04/10/21 16:08 0.5 mg ONETIME ONE Administration Departure - Departure Time of Disposition: 19:16 Disposition: Admitted As Inpatient 66 Clinical Impression: Unspecified septicemia Hematuria Qualifiers: Hematuria type: gross Qualified Code(s): R31.0 - Gross hematuria - Discharge Information Sepsis Event Note (ED) - Evaluation Sepsis Screening Result: Possible Sepsis Risk - Focused Exam Vital Signs: Vital Signs Temp Temp Pulse Resp BP Pulse Ox 04/10/21 18:41 104 H 20 102/52 L 98 04/10/21 17:04 100 F 120 H 18 102/45 L 97 04/10/21 16:44 100 F 04/10/21 15:50 112 H 18 123/73 97 04/10/21 15:12 100 F 102 H 18 112/73 97 04/10/21 13:41 100.3 F 104 H 18 120/73 98 04/10/21 12:48 104 H 18 110/72 97 04/10/21 12:10 100 18 116/73 97 04/10/21 11:40 106 H 18 121/73 97 04/10/21 11:12 110 H 18 118/71 97 04/10/21 10:07 103.0 F H 116 H 18 113/66 98 - My Orders Last 24 Hours: My Active Orders 04/10/21 10:31 Isolation [COMM] Routine 04/10/21 10:55 CULTURE BLOOD [BC] Stat 04/10/21 11:11 Blood Culture x2 Reflex Set [OM.PC] Stat 04/10/21 11:26 CULTURE BLOOD [BC] Stat 04/10/21 11:55 Isolation [COMM] Routine - Assessment/Plan Last 24 Hours: My Active Orders 04/10/21 10:31 Isolation [COMM] Routine 04/10/21 10:55 CULTURE BLOOD [BC] Stat 04/10/21 11:11 Blood Culture x2 Reflex Set [OM.PC] Stat 04/10/21 11:26 CULTURE BLOOD [BC] Stat 04/10/21 11:55 Isolation [COMM] Routine
--- NOTE | 2021-04-10 11:26 | PCM.EKG ---
#1 Interpretation EKG Date: 04/10/21 Time: 11:07 Rhythm: NSR Rate (Beats/Min): 110 [place]: Normal P-Wave: Present QRS: Normal ST-T: Normal (T wave inversion III) QT: Normal Comparison: NA - No Prior EKG EKG Interpretation Comments: Sinus Tachycardia
[2021-04-10 11:29] LABS: BLOOD UREA NITROGEN,BUN 9 mg/dL (7.0-18.0); CARBON DIOXIDE,CO2 21.9 mmol/L (21.0-32.0); CHLORIDE,CL 100 mmol/L (98-107); GLUCOSE RANDOM 127 mg/dL (74-106); LIPASE 63 U/L (73-393); POTASSIUM,K 3.7 mmol/L (3.5-5.1); SODIUM,NA 137 mmol/L (136-145)
--- NOTE | 2021-04-10 11:42 | CR ---
INDICATION: Cough; fever. COMPARISON: CT abdomen and pelvis April 07, 2021. TECHNIQUE: Portable AP chest. FINDINGS: Normal size cardiac silhouette. Clear lung crowell with no evidence of acute pneumonic infiltrates or CHF. No pneumothorax or pleural effusion. IMPRESSION: Negative chest. Dictated by Manfred Weir MD @ 04/10/2021 11:41:10 AM (Electronically Signed)
[2021-04-10] MEDS ORDERED: Cefepime 2 GM in Premix Bag 1 BAG IV ONE (11:54)
[2021-04-10] MEDS ORDERED: Iopamidol 755 MG/ML 500 ML Multipack Bottle IVPUSH STA (15:05)
--- NOTE | 2021-04-10 15:30 | CT ---
Indication: Fever, tachycardia, sepsis of unknown origin Technique: Volumetric multidetector CT images of the chest were obtained after the administration of IV contrast. 50 cc Isovue 370 low osmolar intravenous contrast Comparison: None available. Findings: The thoracic inlet and thyroid gland are unremarkable. The thoracic aorta is nonaneurysmal. There is no central filling defect to suggest pulmonary embolism. There are likely mildly reactive mediastinal and hilar lymph nodes. There is no axillary adenopathy. There is minimal nonspecific central bronchial prominence. There is no focal consolidation, effusion or pneumothorax. There is no evidence of pulmonary mass or suspicious pulmonary nodule. The partially visualized upper abdominal viscera are within normal limits. The thoracic vertebral body heights are grossly maintained with minimal endplate Schmorl`s defects. There is no significant spondylolisthesis or displaced fracture. Impression: Minimal nonspecific central bronchial thickening and trace reactive appearance of the hilar lymph nodes. Otherwise, no evidence of dense consolidation or pulmonary embolus. Please note that all CT scans at this facility use dose modulation, iterative reconstruction, and/or weight-based dosing when appropriate to reduce radiation dose to as low as reasonably achievable. Dictated by Alfonzo Rey MD @ 04/10/2021 3:29:13 PM (Electronically Signed)
--- NOTE | 2021-04-10 15:33 | US ---
INDICATION: Fever. Tachycardia. Positive D-dimer. TECHNIQUE: Grayscale two-dimensional ultrasound without and with compression as well as color-flow and spectral Doppler of the lower extremity veins bilaterally. COMPARISON: None. FINDINGS: Normal compressibility of and flow within the common femoral, superficial femoral, popliteal, posterior tibial, profunda, and greater saphenous veins is demonstrated bilaterally. No thrombus is identified. IMPRESSION: Negative bilateral lower extremity venous Doppler study. Dictated by Hema Cevallos MD @ 04/10/2021 3:31:55 PM (Electronically Signed)
[2021-04-10] MEDS ORDERED: Acetaminophen 500 MG Tab PO ONE (15:43)
[2021-04-10] MEDS ORDERED: LORazepam 2 MG/ML SDV IVPUSH ONE (16:07)
--- NOTE | 2021-04-10 18:48 | US ---
HISTORY: Fever and tachycardia. UTI. TECHNIQUE: Renal/bladder ultrasound. COMPARISON: CT 04/07/2021. FINDINGS: Right and left kidneys measure 9.7 and 10.4 cm in size respectively. Renal cortical thickness is within normal limits. No hydronephrosis. No shadowing calculus. No renal mass or renal abscess seen. No perinephric fluid collection. Prevoid urinary bladder volume 359 mL. Postvoid urinary bladder volume 5 mL. Bilateral ureteral jets were observed. IMPRESSION: 1. No hydronephrosis. 2. No perinephric fluid or renal abscess. Dictated by Emeka Moody MD @ 04/10/2021 6:45:31 PM Dictated by: Emeka Moody MD @ 04/10/2021 18:45:34 (Electronically Signed)
[2021-04-10] MEDS ORDERED: Ibuprofen 800 MG Tab PO ONE (20:13)
--- NOTE | 2021-04-10 23:40 | PCM.HP.2 ---
H&P History of Present Illness - General Date of Service: 04/10/21 Admit Problem/Dx: Admission Diagnosis/Problem Admission Diagnosis/Problem Sepsis - History of Present Illness Initial Comments - Free Text/Narative: 20 yo female who reports five days of hematuria. She has been passing blood clots. She was seen four days ago in the ER. She had a CT scan of the addomen/pelvis which reported mild left hydronephrosis. Patient reports hematuria resolved but now has fevers and fatigue. She denies any abdominal /flank pain. No dysuria, no rash, no nausea, no shortness of breath. IN the ED today she was noted to have a fever, HR of 120s. Work up was significant for a WBC of 19,000, CXR, CT chest angio, and retroperitoneal ultrasound were unremarkable. head Pain Score (Numeric/FACES): 6 - Related Data Allergies/Adverse Reactions: Allergies Allergy/AdvReac Type Severity Reaction Status Date / Time amoxicillin Allergy Rash Verified 04/10/21 21:27 Home Medications: Home Meds levoFLOXacin [Levaquin] 750 mg PO DAILY #6 tab 04/11/21 [Rx] Past Medical History - Past Health History Medical/Surgical History: Denies Medical/Surgical History HEENT History: Reports: Impaired Vision Cardiovascular History: Reports: None Respiratory History: Reports: None Gastrointestinal History: Reports: None Genitourinary History: Reports: None DRIVER/GUIDE History: Reports: None Musculoskeletal History: Reports: None Neurological History: Reports: Migraines Psychiatric History: Reports: Anxiety Endocrine/Metabolic History: Reports: None Hematologic History: Reports: Other (See Below) Other Hematologic History: Sickle cell trait Immunologic History: Reports: None Oncologic (Cancer) History: Reports: None Dermatologic History: Reports: None - Infectious Disease History Infectious Disease History: Reports: None - Past Surgical History Head Surgeries/Procedures: Reports: None HEENT Surgical History: Reports: None Cardiovascular Surgical History: Reports: None Respiratory Surgical History: Reports: None GI Surgical History: Reports: None Female Surgical History: Reports: None Endocrine Surgical History: Reports: None Neurological Surgical History: Reports: None Musculoskeletal Surgical History: Reports: None Oncologic Surgical History: Reports: None Dermatological Surgical History: Reports: None Social & Family History - Family History Family Medical History: No Pertinent Family History - Tobacco Use Tobacco Use Status *Q: Never Tobacco User Second Hand Smoke Exposure: No - Caffeine Use Caffeine Use: Reports: None - Recreational Drug Use Recreational Drug Use: No H&P Review of Systems - Review of Systems: Review Of Systems: Comprehensive ROS is negative, except as noted in HPI. Exam - Exam Exam: See Below - Vital Signs Vital Signs: Last Vital Signs Temp 38.1 C 04/10/21 21:33 Pulse 114 H 04/10/21 20:49 Resp 18 04/10/21 20:49 BP 92/54 L 04/10/21 20:49 Pulse Ox 99 04/10/21 20:49 Weight: 68 kg - Exam General: Alert, Oriented HEENT: Mucosa Moist & [place], Posterior Pharynx Clear Neck: Supple. No: Lymphadenopathy Lungs: Clear to Auscultation, Normal Respiratory Effort Cardiovascular: Regular Rate, Regular Rhythm GI/Abdominal Exam: Normal Bowel Sounds, Soft, Non-Tender Extremities: Non-Tender Skin: Warm, Dry, Intact Neurological: Cranial Nerves Intact - Patient Data Lab Results Last 24 hrs: Laboratory Results - last 24 hr 04/10/21 04/10/21 04/10/21 Range/Units 10:10 10:10 10:18 WBC (4.0-11.0) K/uL RBC (4.30-5.90) M/uL Hgb (12.0-16.0) g/dL Hct (36.0-46.0) % MCV (80.0-98.0) fL MCH (27.0-32.0) pg MCHC (31.0-37.0) g/dL RDW Std Deviation (28.0-62.0) fl RDW Coeff of [place] (11.0-15.0) % Plt Count (150-400) K/uL MPV (7.40-12.00) fL Neut % (Auto) (48.0-80.0) % Lymph % (Auto) (16.0-40.0) % [place] % (Auto) (0.0-15.0) % Eos % (Auto) (0.0-7.0) % Baso % (Auto) (0.0-1.5) % Neut # (Auto) (1.4-5.7) K/uL Lymph # (Auto) (0.6-2.4) K/uL [place] # (Auto) (0.0-0.8) K/uL Eos # (Auto) (0.0-0.7) K/uL Baso # (Auto) (0.0-0.1) K/uL Nucleated RBC % /100WBC Nucleated RBCs # K/uL Smear Path Review D-Dimer, Quantitative (0.0-0.50) mg/L FEU Sodium (136-145) mmol/L Potassium (3.5-5.1) mmol/L Chloride (98-107) mmol/L Carbon Dioxide (21.0-32.0) mmol/L BUN (7.0-18.0) mg/dL Creatinine (0.6-1.0) mg/dL Est Cr Clr Drug Dosing mL/min Estimated GFR (MDRD) ml/min Glucose (74-106) mg/dL Lactic Acid (0.4-2.0) mmol/L Calcium (8.5-10.1) mg/dL Total Bilirubin (0.2-1.0) mg/dL AST (15-37) IU/L ALT (14-63) IU/L Alkaline Phosphatase (46-116) U/L Troponin I (0.000-0.056) ng/mL Total Protein (6.4-8.2) g/dL Albumin (3.4-5.0) g/dL Globulin (2.6-4.0) g/dL Albumin/Globulin Ratio (0.9-1.6) Lipase (73-393) U/L TSH, Ultra Sensitive (0.36-3.74) uIU/mL Urine Color YELLOW Urine Appearance CLEAR Urine pH 6.0 (5.0-8.0) Ur Specific [place] 1.020 (1.001-1.035) Urine Protein NEGATIVE (NEGATIVE) mg/dL Urine Glucose (UA) NEGATIVE (NEGATIVE) mg/dL Urine Ketones NEGATIVE (NEGATIVE) mg/dL Urine Occult Blood MODERATE H (NEGATIVE) Urine Nitrite NEGATIVE (NEGATIVE) Urine Bilirubin NEGATIVE (NEGATIVE) Urine Urobilinogen 0.2 (<2.0) EU/dL Ur Leukocyte Esterase NEGATIVE (NEGATIVE) Urine RBC 0-1 (0-2/HPF) Urine WBC 1-4 (0-5/HPF) Ur Epithelial Cells OCCASIONAL (NONE-FEW) Urine Bacteria 2+ H (NEGATIVE) Urine Mucus LIGHT (NONE-MOD) Urine HCG, Qual NEGATIVE (NEGATIVE) SARS-CoV-2 RNA ([place]) NEGATIVE (NEGATIVE) Group A Strep (PCR) (NOT DETECT) 04/10/21 04/10/21 04/10/21 Range/Units 10:55 10:55 10:55 WBC 19.25 H (4.0-11.0) K/uL RBC 4.29 L (4.30-5.90) M/uL Hgb 12.3 (12.0-16.0) g/dL Hct 35.8 L (36.0-46.0) % MCV 83.4 (80.0-98.0) fL MCH 28.7 (27.0-32.0) pg MCHC 34.4 (31.0-37.0) g/dL RDW Std Deviation 43.4 (28.0-62.0) fl RDW Coeff of [place] 14 (11.0-15.0) % Plt Count 274 (150-400) K/uL MPV 10.60 (7.40-12.00) fL Neut % (Auto) 89.1 H (48.0-80.0) % Lymph % (Auto) 4.3 L (16.0-40.0) % [place] % (Auto) 6.5 (0.0-15.0) % Eos % (Auto) 0.0 (0.0-7.0) % Baso % (Auto) 0.1 (0.0-1.5) % Neut # (Auto) 17.2 H (1.4-5.7) K/uL Lymph # (Auto) 0.8 (0.6-2.4) K/uL [place] # (Auto) 1.3 H (0.0-0.8) K/uL Eos # (Auto) 0.0 (0.0-0.7) K/uL Baso # (Auto) 0.0 (0.0-0.1) K/uL Nucleated RBC % 0.0 /100WBC Nucleated RBCs # 0 K/uL Smear Path Review D-Dimer, Quantitative (0.0-0.50) mg/L FEU Sodium 137 (136-145) mmol/L Potassium 3.7 (3.5-5.1) mmol/L Chloride 100 (98-107) mmol/L Carbon Dioxide 21.9 (21.0-32.0) mmol/L BUN 9 (7.0-18.0) mg/dL Creatinine 1.0 (0.6-1.0) mg/dL Est Cr Clr Drug Dosing 64.46 mL/min Estimated GFR (MDRD) > 60.0 ml/min Glucose 127 H (74-106) mg/dL Lactic Acid 2.1 H* (0.4-2.0) mmol/L Calcium 9.8 (8.5-10.1) mg/dL Total Bilirubin 0.8 (0.2-1.0) mg/dL AST 13 L (15-37) IU/L ALT 21 (14-63) IU/L Alkaline Phosphatase 79 (46-116) U/L Troponin I (0.000-0.056) ng/mL Total Protein 7.4 (6.4-8.2) g/dL Albumin 4.0 (3.4-5.0) g/dL Globulin 3.4 (2.6-4.0) g/dL Albumin/Globulin Ratio 1.2 (0.9-1.6) Lipase 63 L (73-393) U/L TSH, Ultra Sensitive (0.36-3.74) uIU/mL Urine Color Urine Appearance Urine pH (5.0-8.0) Ur Specific [place] (1.001-1.035) Urine Protein (NEGATIVE) mg/dL Urine Glucose (UA) (NEGATIVE) mg/dL Urine Ketones (NEGATIVE) mg/dL Urine Occult Blood (NEGATIVE) Urine Nitrite (NEGATIVE) Urine Bilirubin (NEGATIVE) Urine Urobilinogen (<2.0) EU/dL Ur Leukocyte Esterase (NEGATIVE) Urine RBC (0-2/HPF) Urine WBC (0-5/HPF) Ur Epithelial Cells (NONE-FEW) Urine Bacteria (NEGATIVE) Urine Mucus (NONE-MOD) Urine HCG, Qual (NEGATIVE) SARS-CoV-2 RNA ([place]) (NEGATIVE) Group A Strep (PCR) (NOT DETECT) 04/10/21 04/10/21 04/10/21 Range/Units 10:55 10:55 10:55 WBC (4.0-11.0) K/uL RBC (4.30-5.90) M/uL Hgb (12.0-16.0) g/dL Hct (36.0-46.0) % MCV (80.0-98.0) fL MCH (27.0-32.0) pg MCHC (31.0-37.0) g/dL RDW Std Deviation (28.0-62.0) fl RDW Coeff of [place] (11.0-15.0) % Plt Count (150-400) K/uL MPV (7.40-12.00) fL Neut % (Auto) (48.0-80.0) % Lymph % (Auto) (16.0-40.0) % [place] % (Auto) (0.0-15.0) % Eos % (Auto) (0.0-7.0) % Baso % (Auto) (0.0-1.5) % Neut # (Auto) (1.4-5.7) K/uL Lymph # (Auto) (0.6-2.4) K/uL [place] # (Auto) (0.0-0.8) K/uL Eos # (Auto) (0.0-0.7) K/uL Baso # (Auto) (0.0-0.1) K/uL Nucleated RBC % /100WBC Nucleated RBCs # K/uL Smear Path Review SENT TO PATHOLOGY D-Dimer, Quantitative 0.66 H (0.0-0.50) mg/L FEU Sodium (136-145) mmol/L Potassium (3.5-5.1) mmol/L Chloride (98-107) mmol/L Carbon Dioxide (21.0-32.0) mmol/L BUN (7.0-18.0) mg/dL Creatinine (0.6-1.0) mg/dL Est Cr Clr Drug Dosing mL/min Estimated GFR (MDRD) ml/min Glucose (74-106) mg/dL Lactic Acid (0.4-2.0) mmol/L Calcium (8.5-10.1) mg/dL Total Bilirubin (0.2-1.0) mg/dL AST (15-37) IU/L ALT (14-63) IU/L Alkaline Phosphatase (46-116) U/L Troponin I (0.000-0.056) ng/mL Total Protein (6.4-8.2) g/dL Albumin (3.4-5.0) g/dL Globulin (2.6-4.0) g/dL Albumin/Globulin Ratio (0.9-1.6) Lipase (73-393) U/L TSH, Ultra Sensitive 0.36 (0.36-3.74) uIU/mL Urine Color Urine Appearance Urine pH (5.0-8.0) Ur Specific [place] (1.001-1.035) Urine Protein (NEGATIVE) mg/dL Urine Glucose (UA) (NEGATIVE) mg/dL Urine Ketones (NEGATIVE) mg/dL Urine Occult Blood (NEGATIVE) Urine Nitrite (NEGATIVE) Urine Bilirubin (NEGATIVE) Urine Urobilinogen (<2.0) EU/dL Ur Leukocyte Esterase (NEGATIVE) Urine RBC (0-2/HPF) Urine WBC (0-5/HPF) Ur Epithelial Cells (NONE-FEW) Urine Bacteria (NEGATIVE) Urine Mucus (NONE-MOD) Urine HCG, Qual (NEGATIVE) SARS-CoV-2 RNA ([place]) (NEGATIVE) Group A Strep (PCR) (NOT DETECT) 04/10/21 04/10/21 04/10/21 Range/Units 12:14 16:07 16:07 WBC (4.0-11.0) K/uL RBC (4.30-5.90) M/uL Hgb (12.0-16.0) g/dL Hct (36.0-46.0) % MCV (80.0-98.0) fL MCH (27.0-32.0) pg MCHC (31.0-37.0) g/dL RDW Std Deviation (28.0-62.0) fl RDW Coeff of [place] (11.0-15.0) % Plt Count (150-400) K/uL MPV (7.40-12.00) fL Neut % (Auto) (48.0-80.0) % Lymph % (Auto) (16.0-40.0) % [place] % (Auto) (0.0-15.0) % Eos % (Auto) (0.0-7.0) % Baso % (Auto) (0.0-1.5) % Neut # (Auto) (1.4-5.7) K/uL Lymph # (Auto) (0.6-2.4) K/uL [place] # (Auto) (0.0-0.8) K/uL Eos # (Auto) (0.0-0.7) K/uL Baso # (Auto) (0.0-0.1) K/uL Nucleated RBC % /100WBC Nucleated RBCs # K/uL Smear Path Review D-Dimer, Quantitative (0.0-0.50) mg/L FEU Sodium (136-145) mmol/L Potassium (3.5-5.1) mmol/L Chloride (98-107) mmol/L Carbon Dioxide (21.0-32.0) mmol/L BUN (7.0-18.0) mg/dL Creatinine (0.6-1.0) mg/dL Est Cr Clr Drug Dosing mL/min Estimated GFR (MDRD) ml/min Glucose (74-106) mg/dL Lactic Acid 1.9 (0.4-2.0) mmol/L Calcium (8.5-10.1) mg/dL Total Bilirubin (0.2-1.0) mg/dL AST (15-37) IU/L ALT (14-63) IU/L Alkaline Phosphatase (46-116) U/L Troponin I < 0.050 (0.000-0.056) ng/mL Total Protein (6.4-8.2) g/dL Albumin (3.4-5.0) g/dL Globulin (2.6-4.0) g/dL Albumin/Globulin Ratio (0.9-1.6) Lipase (73-393) U/L TSH, Ultra Sensitive (0.36-3.74) uIU/mL Urine Color Urine Appearance Urine pH (5.0-8.0) Ur Specific [place] (1.001-1.035) Urine Protein (NEGATIVE) mg/dL Urine Glucose (UA) (NEGATIVE) mg/dL Urine Ketones (NEGATIVE) mg/dL Urine Occult Blood (NEGATIVE) Urine Nitrite (NEGATIVE) Urine Bilirubin (NEGATIVE) Urine Urobilinogen (<2.0) EU/dL Ur Leukocyte Esterase (NEGATIVE) Urine RBC (0-2/HPF) Urine WBC (0-5/HPF) Ur Epithelial Cells (NONE-FEW) Urine Bacteria (NEGATIVE) Urine Mucus (NONE-MOD) Urine HCG, Qual (NEGATIVE) SARS-CoV-2 RNA ([place]) (NEGATIVE) Group A Strep (PCR) NOT DETECTED (NOT DETECT) Result Diagrams: 04/11/21 05:40 04/11/21 05:40 Wade Results Last 24 hrs: Microbiology 04/10/21 10:18 Influenza Type A Antigen Screen - Final Nasopharyngeal Swab NEGATIVE INFLUENZA A VIRUS AG REFERENCE RANGE: NEGATIVE Influenza Type B Antigen Screen - Final NEGATIVE INFLUENZA B VIRUS AG REFERENCE RANGE: NEGATIVE 04/10/21 10:18 Respiratory Syncytial Virus Ag Scrn - Final Nasal, Unspecified NEGATIVE RSV ANTIGEN REFERENCE RANGE: NEGATIVE Sepsis Event Note - Evaluation Sepsis Screening Result: No Definite Risk - Focused Exam Vital Signs: Vital Signs Temp Temp Pulse Resp BP Pulse Ox 04/10/21 21:33 38.1 C 04/10/21 20:49 39.1 C H 114 H 18 92/54 L 99 04/10/21 20:22 39.1 C H 122 H 18 97/60 98 04/10/21 18:41 104 H 20 102/52 L 98 04/10/21 17:04 37.7 C 120 H 18 102/45 L 97 04/10/21 16:44 37.7 C 04/10/21 15:50 112 H 18 123/73 97 04/10/21 15:12 37.7 C 102 H 18 112/73 97 04/10/21 13:41 37.9 C 104 H 18 120/73 98 04/10/21 12:48 104 H 18 110/72 97 04/10/21 12:10 100 18 116/73 97 04/10/21 11:40 106 H 18 121/73 97 - Problem List (1) Fever, unknown origin SNOMED Code(s): 3071039 ICD Code: R50.9 - FEVER, UNSPECIFIED Status: Acute (2) UTI (urinary tract infection) SNOMED Code(s): 87476076 ICD Code: N39.0 - URINARY TRACT INFECTION, SITE NOT SPECIFIED Status: Acute Problem List Initiated/Reviewed/Updated: Yes Orders Last 24hrs: Active Orders 24 hr Category Date Time Status Admission Status [Patient Status] [ADT] Stat ADT 04/10/21 19:09 Active Regular Diet [DIET] Diet 04/11/21 Breakfast Active CULTURE BLOOD [BC] Stat Lab 04/10/21 10:55 Received CULTURE BLOOD [BC] Stat Lab 04/10/21 11:26 Received CULTURE URINE [MREF] Routine Lab 04/10/21 10:10 Received Cefepime [Maxipime in D5W 2 GM/50 ML] 2 gm Med 04/11/21 00:00 Active Premix Bag 1 bag IV Q8H Sodium Chloride 0.9% [Normal Saline] 1,000 ml Med 04/10/21 20:13 Active IV STAT Blood Culture x2 Reflex Set [OM.PC] Stat Oth 04/10/21 11:11 Ordered Isolation [COMM] Routine Oth 04/10/21 10:31 Active Isolation [COMM] Routine Oth 04/10/21 11:55 Active Medication Orders Sodium Chloride (Normal Saline) 1,000 mls @ 125 mls/hr IV STAT ONE Stop: 04/11/21 04:12 Last Admin: 04/10/21 20:23 Dose: 125 mls/hr Documented by: VITALY Cefepime HCl 2 gm/ Premix 50 mls @ 100 mls/hr IV Q8H [facility] Assessment/Plan Comment:: 20 yo female with history of hematuria who is being admitted for fever of unknown origin. We will treat for possible UTI with cefepime. Patient does not appear septic.
[2021-04-11] MEDS: Cefepime 2 GM in Premix Bag 1 BAG IV SCH ×2 (00:50→08:39)
[2021-04-11 07:16] LABS: BLOOD UREA NITROGEN,BUN 7 mg/dL (7.0-18.0); CARBON DIOXIDE,CO2 22.9 mmol/L (21.0-32.0); CHLORIDE,CL 107 mmol/L (98-107); GLUCOSE RANDOM 112 mg/dL (74-106); POTASSIUM,K 3.7 mmol/L (3.5-5.1); SODIUM,NA 140 mmol/L (136-145)
[2021-04-11] MEDS ORDERED: Sodium Chloride 0.9% 2.5 ML Syringe FLUSH PRN (08:19)
[2021-04-11] MEDS ORDERED: Lactated Ringers 1,000 ML IV SCH (08:30)
[2021-04-11] MEDS ORDERED: Acetaminophen 325 MG Tab PO PRN (08:30)
[2021-04-11] MEDS ORDERED: Ondansetron 4 MG/2 ML SDV IVPUSH PRN (08:30)
[2021-04-11] MEDS ORDERED: Docusate Sodium 100 MG Cap PO PRN (09:00)
[2021-04-11] MEDS ORDERED: cefTRIAXone 1 GM in Premix Bag 1 BAG IV SCH (10:45)
--- NOTE | 2021-04-11 13:16 | PCM.DCSUM1 ---
Discharge Summary - Hospital Course Brief History: 20 yo female who reports five days of hematuria. She has been passing blood clots. She was seen four days ago in the ER. She had a CT scan of the addomen/pelvis which reported mild left hydronephrosis. Patient reports hematuria resolved but now has fevers and fatigue. She denies any abdominal/flank pain. No dysuria, no rash, no nausea, no shortness of breath. IN the ED today she was noted to have a fever, HR of 120s. Work up was significant for a WBC of 19,000, CXR, CT chest angio, and retroperitoneal ultrasound were unremarkable. - Discharge Data Discharge Date: 04/11/21 Discharge Disposition: Home, Self-Care 01 Condition: Stable - Referral to Home Health Primary Care Physician: PCP None - Discharge Diagnosis/Problem(s) (1) UTI (urinary tract infection) SNOMED Code(s): 99581859 ICD Code: N39.0 - URINARY TRACT INFECTION, SITE NOT SPECIFIED Status: Acute (2) Fever, unknown origin SNOMED Code(s): 5579715 ICD Code: R50.9 - FEVER, UNSPECIFIED Status: Acute (3) Hematuria SNOMED Code(s): 02387057 ICD Code: R31.9 - HEMATURIA, UNSPECIFIED Status: Acute Qualifiers: Hematuria type: gross Qualified Code(s): R31.0 - Gross hematuria - Patient Summary/Data Hospital Course: Admission diagnoses Possible UTI Fever of unknown origin Hematuria since resolved Discharge diagnoses Possible UTI Possible ureteral stone passage Fever unknown origin, resolved Hematuria resolved prior to admission This was admitted secondary to possible UTI with suspicion for recent stone passage due to CT findings previous ER visit with dilated ureter. Patient is hematuria which was noted at home and passing of clots via urethra have since resolved prior to this admission. Patient had possible mild UTI with leukocytosis and fever. Sister at bedside today which reveals that she has had an intermittent fever over the last couple years and has seen primary care provider in [place] regarding this which they per snapshots of progress note and clinic note on patient's phone suggest that this is related to some unknown viral syndrome and or anxiety. Patient was treated aggressively with IV fluids blood cultures were obtained which have since returned negative x1 day. Patient was not found to be septic but has SIRS criteria. She was treated with cefepime for possible UTI secondary to recently passed ureteral stone as evidenced by dilation of ureter on CT scan. No other signs of infectious source at this time. Patient is eating and drinking well. And is eager to be discharged home today. She will be kept on antibiotics due to possible UTI should be continued on Levaquin 750 mg for 6 more days total of 7-day course she will have Rocephin 1 g IV today prior to discharge. We will make sure we have accurate phone number on her chart so that we can call her with urine culture results and any changes to medications as needed. We will send urology referral to have any further exploration of urinary system if they feel adequate. Patient is to return to the ER if she has fevers chills dysuria abdominal pain or flank pain. If her hematuria were to return she is well will need to be seen again. No fever since last evening patient otherwise has quickly improved. Her and her sister verbalized understanding and they will be discharged home today. - Patient Instructions Diet: Regular Diet as Tolerated Activity: No Strenuous Activities, Rest and Relax Today Showering/Bathing: May Shower Notify Provider of: Fever, Increased Pain, Swelling and Redness, Drainage, Nausea and/or Vomiting - Discharge Plan *PRESCRIPTION DRUG MONITORING PROGRAM REVIEWED*: Not Applicable *COPY OF PRESCRIPTION DRUG MONITORING REPORT IN PATIENT TAE: Not Applicable Prescriptions/Med Rec: levoFLOXacin [Levaquin] 750 mg PO DAILY #6 tab Home Medications: Home Meds levoFLOXacin [Levaquin] 750 mg PO DAILY #6 tab 04/11/21 [Rx] Oxygen Therapy Mode: Room Air Patient Handouts: Urinary Tract Infection, Adult, Levofloxacin tablets, Hematuria, Adult Referrals: Dagmar Fall DO [Ordering Only Provider] - 07/03/21 10:00 am Griselda Mcgraw CNM [Mid-] - 04/19/21 12:00 pm - Discharge Summary/Plan Comment DC Time >30 min.: No Total # of Minutes for Discharge Time: 25 - Patient Data Vitals - Most Recent: Last Vital Signs Temp 98.6 F 04/11/21 08:00 Pulse 101 H 04/11/21 08:00 Resp 16 04/11/21 08:00 BP 99/56 L 04/11/21 08:00 Pulse Ox 100 04/11/21 08:00 Weight - Most Recent: 68 kg I&O - Last 24 hours: Intake & Output 04/10/21 04/11/21 04/11/21 22:59 06:59 14:59 Intake Total 400 1380 Output Total 350 1400 Balance 50 -20 Lab Results - Last 24 hrs: Laboratory Results - last 24 hr 04/10/21 04/10/21 04/10/21 Range/Units 10:55 10:55 12:14 WBC (4.0-11.0) K/uL RBC (4.30-5.90) M/uL Hgb (12.0-16.0) g/dL Hct (36.0-46.0) % MCV (80.0-98.0) fL MCH (27.0-32.0) pg MCHC (31.0-37.0) g/dL RDW Std Deviation (28.0-62.0) fl RDW Coeff of [place] (11.0-15.0) % Plt Count (150-400) K/uL MPV (7.40-12.00) fL Neut % (Auto) (48.0-80.0) % Lymph % (Auto) (16.0-40.0) % Wilson % (Auto) (0.0-15.0) % Eos % (Auto) (0.0-7.0) % Baso % (Auto) (0.0-1.5) % Neut # (Auto) (1.4-5.7) K/uL Lymph # (Auto) (0.6-2.4) K/uL Wilson # (Auto) (0.0-0.8) K/uL Eos # (Auto) (0.0-0.7) K/uL Baso # (Auto) (0.0-0.1) K/uL Nucleated RBC % /100WBC Nucleated RBCs # K/uL D-Dimer, Quantitative 0.66 H (0.0-0.50) mg/L FEU Sodium (136-145) mmol/L Potassium (3.5-5.1) mmol/L Chloride (98-107) mmol/L Carbon Dioxide (21.0-32.0) mmol/L BUN (7.0-18.0) mg/dL Creatinine (0.6-1.0) mg/dL Est Cr Clr Drug Dosing mL/min Estimated GFR (MDRD) ml/min Glucose (74-106) mg/dL Lactic Acid (0.4-2.0) mmol/L Calcium (8.5-10.1) mg/dL Total Bilirubin (0.2-1.0) mg/dL AST (15-37) IU/L ALT (14-63) IU/L Alkaline Phosphatase (46-116) U/L Troponin I (0.000-0.056) ng/mL Total Protein (6.4-8.2) g/dL Albumin (3.4-5.0) g/dL Globulin (2.6-4.0) g/dL Albumin/Globulin Ratio (0.9-1.6) TSH, Ultra Sensitive 0.36 (0.36-3.74) uIU/mL Group A Strep (PCR) NOT DETECTED (NOT DETECT) 04/10/21 04/10/21 04/11/21 Range/Units 16:07 16:07 05:40 WBC 12.53 H (4.0-11.0) K/uL RBC 3.30 L (4.30-5.90) M/uL Hgb 9.5 L (12.0-16.0) g/dL Hct 27.7 L (36.0-46.0) % MCV 83.9 (80.0-98.0) fL MCH 28.8 (27.0-32.0) pg MCHC 34.3 (31.0-37.0) g/dL RDW Std Deviation 44.2 (28.0-62.0) fl RDW Coeff of [place] 14 (11.0-15.0) % Plt Count 180 (150-400) K/uL MPV 11.50 (7.40-12.00) fL Neut % (Auto) 85.8 H (48.0-80.0) % Lymph % (Auto) 8.2 L (16.0-40.0) % Wilson % (Auto) 5.8 (0.0-15.0) % Eos % (Auto) 0.1 (0.0-7.0) % Baso % (Auto) 0.1 (0.0-1.5) % Neut # (Auto) 10.8 H (1.4-5.7) K/uL Lymph # (Auto) 1.0 (0.6-2.4) K/uL Wilson # (Auto) 0.7 (0.0-0.8) K/uL Eos # (Auto) 0.0 (0.0-0.7) K/uL Baso # (Auto) 0.0 (0.0-0.1) K/uL Nucleated RBC % 0.0 /100WBC Nucleated RBCs # 0 K/uL D-Dimer, Quantitative (0.0-0.50) mg/L FEU Sodium (136-145) mmol/L Potassium (3.5-5.1) mmol/L Chloride (98-107) mmol/L Carbon Dioxide (21.0-32.0) mmol/L BUN (7.0-18.0) mg/dL Creatinine (0.6-1.0) mg/dL Est Cr Clr Drug Dosing mL/min Estimated GFR (MDRD) ml/min Glucose (74-106) mg/dL Lactic Acid 1.9 (0.4-2.0) mmol/L Calcium (8.5-10.1) mg/dL Total Bilirubin (0.2-1.0) mg/dL AST (15-37) IU/L ALT (14-63) IU/L Alkaline Phosphatase (46-116) U/L Troponin I < 0.050 (0.000-0.056) ng/mL Total Protein (6.4-8.2) g/dL Albumin (3.4-5.0) g/dL Globulin (2.6-4.0) g/dL Albumin/Globulin Ratio (0.9-1.6) TSH, Ultra Sensitive (0.36-3.74) uIU/mL Group A Strep (PCR) (NOT DETECT) 04/11/21 Range/Units 05:40 WBC (4.0-11.0) K/uL RBC (4.30-5.90) M/uL Hgb (12.0-16.0) g/dL Hct (36.0-46.0) % MCV (80.0-98.0) fL MCH (27.0-32.0) pg MCHC (31.0-37.0) g/dL RDW Std Deviation (28.0-62.0) fl RDW Coeff of [place] (11.0-15.0) % Plt Count (150-400) K/uL MPV (7.40-12.00) fL Neut % (Auto) (48.0-80.0) % Lymph % (Auto) (16.0-40.0) % Wilson % (Auto) (0.0-15.0) % Eos % (Auto) (0.0-7.0) % Baso % (Auto) (0.0-1.5) % Neut # (Auto) (1.4-5.7) K/uL Lymph # (Auto) (0.6-2.4) K/uL Wilson # (Auto) (0.0-0.8) K/uL Eos # (Auto) (0.0-0.7) K/uL Baso # (Auto) (0.0-0.1) K/uL Nucleated RBC % /100WBC Nucleated RBCs # K/uL D-Dimer, Quantitative (0.0-0.50) mg/L FEU Sodium 140 (136-145) mmol/L Potassium 3.7 (3.5-5.1) mmol/L Chloride 107 (98-107) mmol/L Carbon Dioxide 22.9 (21.0-32.0) mmol/L BUN 7 (7.0-18.0) mg/dL Creatinine 0.8 (0.6-1.0) mg/dL Est Cr Clr Drug Dosing 80.57 mL/min Estimated GFR (MDRD) > 60.0 ml/min Glucose 112 H (74-106) mg/dL Lactic Acid (0.4-2.0) mmol/L Calcium 8.4 L (8.5-10.1) mg/dL Total Bilirubin 0.9 (0.2-1.0) mg/dL AST 15 (15-37) IU/L ALT 19 (14-63) IU/L Alkaline Phosphatase 56 (46-116) U/L Troponin I (0.000-0.056) ng/mL Total Protein 5.5 L (6.4-8.2) g/dL Albumin 2.7 L (3.4-5.0) g/dL Globulin 2.8 (2.6-4.0) g/dL Albumin/Globulin Ratio 1.0 (0.9-1.6) TSH, Ultra Sensitive (0.36-3.74) uIU/mL Group A Strep (PCR) (NOT DETECT) MIRTA Results - Last 24 hrs: Microbiology 04/10/21 11:26 Aerobic Blood Culture - Preliminary Blood - Venous - Lab Draw NO GROWTH AFTER 1 DAY Anaerobic Blood Culture - Preliminary NO GROWTH AFTER 1 DAY 04/10/21 10:55 Aerobic Blood Culture - Preliminary Blood - Venous NO GROWTH AFTER 1 DAY Anaerobic Blood Culture - Preliminary NO GROWTH AFTER 1 DAY 04/10/21 10:18 Influenza Type A Antigen Screen - Final Nasopharyngeal Swab NEGATIVE INFLUENZA A VIRUS AG REFERENCE RANGE: NEGATIVE Influenza Type B Antigen Screen - Final NEGATIVE INFLUENZA B VIRUS AG REFERENCE RANGE: NEGATIVE 04/10/21 10:18 Respiratory Syncytial Virus Ag Scrn - Final Nasal, Unspecified NEGATIVE RSV ANTIGEN REFERENCE RANGE: NEGATIVE Med Orders - Current: Current Medications Discontinued Medications Acetaminophen (Acetaminophen 500 Mg Tab) 1,000 mg PO ONETIME ONE Stop: 04/10/21 15:44 Last Admin: 04/10/21 16:14 Dose: 1,000 mg Documented by: Acetaminophen (Acetaminophen 325 Mg Tab) 650 mg PO Q4H PRN PRN Reason: Pain/Fever Last Admin: 04/11/21 12:15 Dose: 650 mg Documented by: Docusate Sodium (Docusate Sodium 100 Mg Cap) 100 mg PO BID PRN PRN Reason: Constipation Sodium Chloride (Normal Saline) 1,000 mls @ 999 mls/hr IV BOLUS ONE Stop: 04/10/21 11:31 Last Admin: 04/10/21 10:43 Dose: 999 mls/hr Documented by: Cefepime HCl 2 gm/ Premix 50 mls @ 100 mls/hr IV ONETIME ONE Stop: 04/10/21 12:23 Last Admin: 04/10/21 15:08 Dose: 100 mls/hr Documented by: Vancomycin HCl 1 gm/ Sodium (Chloride) 250 mls @ 166 mls/hr IV ONETIME ONE Stop: 04/10/21 13:26 Last Admin: 04/10/21 12:21 Dose: 166 mls/hr Documented by: Sodium Chloride (Normal Saline) 1,000 mls @ 400 mls/hr IV STAT ONE Stop: 04/10/21 14:25 Last Admin: 04/10/21 12:22 Dose: 400 mls/hr Documented by: Sodium Chloride (Normal Saline) 1,000 mls @ 125 mls/hr IV STAT ONE Stop: 04/11/21 04:12 Last Admin: 04/10/21 20:23 Dose: 125 mls/hr Documented by: Cefepime HCl 2 gm/ Premix 50 mls @ 100 mls/hr IV Q8H [facility] Last Admin: 04/11/21 08:39 Dose: 100 mls/hr Documented by: Lactated Ringer's (Ringers, Lactated) 1,000 mls @ 125 mls/hr IV Q8H [facility] Last Admin: 04/11/21 09:23 Dose: 125 mls/hr Documented by: Ceftriaxone Sodium/Dextrose 1 (gm/ Premix) 50 mls @ 100 mls/hr IV Q24H [facility] Last Admin: 04/11/21 11:05 Dose: 100 mls/hr Documented by: Ibuprofen (Ibuprofen 800 Mg Tab) 800 mg PO ONETIME ONE Stop: 04/10/21 20:14 Last Admin: 04/10/21 20:23 Dose: 800 mg Documented by: Iopamidol (Iopamidol 755 Mg/Ml 500 Ml Multipack Bottle) 50 ml IVPUSH ONETIME STA Stop: 04/10/21 15:06 Last Admin: 04/10/21 15:06 Dose: 50 ml Documented by: Ketorolac Tromethamine (Ketorolac 30 Mg/Ml Sdv) 30 mg IVPUSH ONETIME ONE Stop: 04/10/21 10:40 Last Admin: 04/10/21 10:43 Dose: 30 mg Documented by: Lorazepam (Lorazepam 2 Mg/Ml Sdv) 0.5 mg IVPUSH ONETIME ONE Stop: 04/10/21 16:08 Last Admin: 04/10/21 16:15 Dose: 0.5 mg Documented by: Ondansetron HCl (Ondansetron 4 Mg/2 Ml Sdv) 4 mg IVPUSH Q4H PRN PRN Reason: Nausea Sodium Chloride (Sodium Chloride 0.9% 2.5 Ml Syringe) 2.5 ml FLUSH ASDIRECTED PRN PRN Reason: Keep Vein Open
== END 2021-04-11 12:50 | disposition home or self-care (01) | DRG 690 ==
LOC: MW.ED 09:30 → MW.MS 19:09
PROVIDERS: ADMIT Internal Medicine; ATTEND Internal Medicine
DX: N39.0 Urinary tract infection, site not specified (principal); R65.10 Systemic inflammatory response syndrome (SIRS) of non-infectious origin without acute organ dysfunction; R31.9 Hematuria, unspecified; F41.9 Anxiety disorder, unspecified; R31.0 Gross hematuria; Z20.822 Contact with and (suspected) exposure to COVID-19; Z88.0 Allergy status to penicillin
CPT/HCPCS: 36415; 71045; 71045-26; 71275; 71275-26; 76775; 76775-26; 80053; 81001; 81025; 83605; 83690; 84443; 84484; 85025; 85379; 87040; 87086; 87651-QW; 87804; 87807; 88104; 93005; 93970; 93970-26; 96365; 96366; 96367; 96375; 99285-25; A9270-GY; J0692; J0696; J1885; J2060; J3370; J7030; J7050; J7120; Q9967; U0002